=== PATIENT | male | born 1945 | race Caucasian/White ===

== ENCOUNTER 2017-10-23 17:34 | Emergency (ER) | payer OTHER, MEDICARE ==
[2017-10-23] MEDS: CEFAZOLIN 1 GM INJ IM (19:15)
[2017-10-23] MEDS: DIPHTH/TET/ACEL PERTUSS (ADULT) 0.5 ML VIAL IM* (19:15)
[2017-10-23] MEDS: LIDOCAINE 1% (MDV) 20 ML INJ SC (19:43)
== END 2017-10-23 19:59 | disposition home or self-care (01) ==
LOC: FTE 17:34
DX: S60.413A Abrasion of left middle finger, initial encounter (principal); E11.9 Type 2 diabetes mellitus without complications; W26.8XXA Contact with other sharp object(s), not elsewhere classified, initial encounter; Y92.9 Unspecified place or not applicable; Z23 Encounter for immunization; Z79.82 Long term (current) use of aspirin; Z79.84 Long term (current) use of oral hypoglycemic drugs
CPT/HCPCS: 90471; 90715; 96372; 99284-25